=== PATIENT | female | born 1985 | race Two or more races ===

== ENCOUNTER → 2019-04-06 | Outpatient (CLI) | payer MEDICAID | END | disposition home or self-care (01) | LOC: Rad HDHVI 14:42 | PROVIDERS: ATTEND Internal Medicine Cardiovascular Disease | DX: I34.0 Nonrheumatic mitral (valve) insufficiency (principal); I10 Essential (primary) hypertension; R07.89 Other chest pain | CPT/HCPCS: 93306 ==

== ENCOUNTER → 2019-04-13 | Outpatient (CLI) | payer MEDICAID ==
[~2019-04-13] VITALS: Ht 157.5 cm; Wt 151.5 kg
[~2019-04-13] MED LIST: ACETAMINOPHEN 500 MG TAB PO ONE; ADENOSINE 90 MG/30 ML INJ IV ONE; ADENOSINE IV ONE; GIVE UN DILUTED IV ONE
== END | disposition home or self-care (01) ==
LOC: Rad HDHVI 13:30
PROVIDERS: ATTEND Internal Medicine Cardiovascular Disease
DX: Z01.810 Encounter for preprocedural cardiovascular examination (principal); I10 Essential (primary) hypertension
CPT/HCPCS: 78452; 93005; 96374; 96375; A9500; J0153

== ENCOUNTER → 2020-02-23 | Outpatient (CLI) | payer MEDICAID | END | disposition home or self-care (01) | LOC: Rad HDHVI 13:57 | PROVIDERS: ATTEND Internal Medicine Cardiovascular Disease | DX: I10 Essential (primary) hypertension (principal); R00.2 Palpitations; R07.89 Other chest pain | CPT/HCPCS: 93306 ==